=== PATIENT | female | born 1990 | race Caucasian/White ===

== ENCOUNTER 2017-04-16 07:43 | Emergency (ER) | payer OTHER ==
[~2017-04-16] VITALS: Wt 55.5 kg
[~2017-04-16 07:43] MED LIST: PREN1TAB49
--- NOTE | 2017-04-16 08:29 | ERD ---
ER Documentation Chief Complaint Chief Complaint cough, cwp from coughing, fever ROS All systems reviewed and are negative except as per history of present illness. Medications Home Meds Reported Medications Vits W-Ca,Fe,Fa(<1MG) () 1 Tab Tablet 02/04/12 [None] No Conflict Check 06/29/11 [None] No Conflict Check 09/08/10 Allergies Allergies: Coded Allergies: No Known Allergy (Verified , 02/04/12) PMhx/Soc History of Surgery: Yes (CHOLECYSTECTOMY) Anesthesia Reaction: No Hx Neurological Disorder: No Hx Respiratory Disorders: No Hx Cardiac Disorders: No Hx Psychiatric Problems: No Hx Miscellaneous Medical Probl: No Hx Alcohol Use: No Hx Substance Use: No Hx Tobacco Use: No Physical Exam Vitals Vital Signs Date Time Temp Pulse Resp B/P Pulse Ox O2 Delivery O2 Flow Rate FiO2 04/16/17 07:44 99.5 120 20 123/56 95 Physical Exam Patient is in no acute distress, vital signs stable. Alert and fully oriented. EYES: PERRLA, EOMI, Sclera and conjunctiva appear normal. EARS: Canals clear, tympanic membranes WNL THROAT: Normal oropharynx. NECK: Supple, No lymphadenopathy. Full ROM without pain or tenderness. HEART: RRR, no rubs, murmurs, clicks or gallops. LUNGS: Clear to auscultation. ABDOMEN: Soft, non-tender without masses or hepatosplenomegaly. EXTREMITIES: No edema bilaterally. MUSC: Full ROM, no deformity, normal back exam NAOMI WESTBROOK MD Apr 16, 2017 08:29
[2017-04-16 08:37] VITALS: TEMP 99
--- NOTE | 2017-04-16 08:55 | RADRPT ---
PROCEDURE: XR Chest. CLINICAL INDICATION: Cough. TECHNIQUE: Single frontal view. COMPARISON: None. FINDINGS: The lungs are clear. The heart size is normal. There is no pleural effusion. There is no pneumothorax. IMPRESSION: 1. Normal chest radiograph. RPTAT: QQ .Kurt Finch MD, Date Time Electronically viewed and signed by .Kurt Finch MD, on 04/16/2017 08:55 .R/
[2017-04-16] MEDS ORDERED: IBUPROFEN 600 MG TAB PO ONE (09:00)
[2017-04-16] MEDS ORDERED: SOD CHLORIDE 0.9% 1,000 ML IV ONE (09:00)
[2017-04-16] MEDS ORDERED: IBUP-1542 PO (09:50)
[2017-04-16] MEDS ORDERED: BENZ100C70 PO (09:50)
[2017-04-16] MEDS ORDERED: ALBU8.5H3 INH (09:50)
[2017-04-16 10:22] VITALS: BP 126/75; PULSE 94; RESP 19
--- NOTE | 2017-04-16 12:03 | ERD ---
ER Documentation Chief Complaint Chief Complaint cough, cwp from coughing, fever HPI 27-year-old female comes in with cough, sore throat, runny nose and anterior chest pain for the past 2-3 days. The patient has had a dry cough, and she reports chest pain in the center that goes to her back each time she takes a deep breath in or around or coughs. She has not had any shortness of breath. She does report fevers over the last 2 days. She has no leg pain, leg swelling , is not taking exogenous steroids, denies recent travel. ROS All systems reviewed and are negative except as per history of present illness. Medications Home Meds Active Scripts Albuterol Sulfate* (Proair HFA*) 8.5 Gm Hfa.aer.ad, 2 PUFF INH Q4, #1 INHALER Prov:JUAN JIMENEZ PA-C 04/16/17 Ibuprofen* (Motrin*) 600 Mg Tab, 600 MG PO Q6, #30 TAB Prov:JUAN JIMENEZ PA-C 04/16/17 Benzonatate* (Tessalon Perle*) 100 Mg Capsule, 100 MG PO Q8H Y for COUGH, #30 CAP Prov:JUAN JIMENEZ PA-C 04/16/17 Reported Medications Vits W-Ca,Fe,Fa(<1MG) () 1 Tab Tablet 02/04/12 [None] No Conflict Check 06/29/11 [None] No Conflict Check 09/08/10 Allergies Allergies: Coded Allergies: No Known Allergy (Verified , 02/04/12) PMhx/Soc History of Surgery: Yes (CHOLECYSTECTOMY) Anesthesia Reaction: No Hx Neurological Disorder: No Hx Respiratory Disorders: No Hx Cardiac Disorders: No Hx Psychiatric Problems: No Hx Miscellaneous Medical Probl: No Hx Alcohol Use: No Hx Substance Use: Yes Hx Tobacco Use: No Smoking Status: Never smoker Physical Exam Vitals Vital Signs Date Time Temp Pulse Resp B/P Pulse Ox O2 Delivery O2 Flow Rate FiO2 04/16/17 10:22 94 19 126/75 100 Room Air 04/16/17 09:43 89 04/16/17 08:37 99.0 122 97 04/16/17 07:44 99.5 120 20 123/56 95 Physical Exam General: Well-developed, well-nourished. The patient appears in no acute distress. HEENT: Head is normocephalic, atraumatic. No scleral icterus. Neck: Supple. Nontender. Lungs: Clear to auscultation. Normal air movement. No rales, rhonchi, nonlabored. Heart: Regular rate and rhythm. S1 and S2 are normal. No murmurs, gallops, or rubs. Abdomen: Nondistended. Extremities: No clubbing or cyanosis. Moving extremities x 4. No weakness. Neurologic: Alert and oriented 3. No focal deficits. Normal speech and gait. Skin: Normal turgor. No rash or lesions. Results 24 hrs Current Medications Medications (Trade) Dose Ordered Sig/Reji Route PRN Reason Start Time Stop Time Status Last Admin Dose Admin Ibuprofen 600 mg 600 mg ONCE ONCE PO 04/16/17 09:00 04/16/17 09:01 DC 04/16/17 09:07 Sodium Chloride (NS) 1,000 ml @ 1,000 mls/hr Q1H ONCE IV 04/16/17 09:00 04/16/17 09:59 DC 04/16/17 09:04 Procedures/MDM ED course: The patient was given ibuprofen, heart rate was rechecked and it was 120 and patient was then given a fluid bolus of normal saline 1 L. Recheck of her heart rate was 87. MDM: 27-year-old female comes in with a cough, history of fever and upper respiratory infection symptoms including sore throat, runny nose and she also reports generalized myalgias. The patient's history of chest pain also was considered, differentials include pneumonia, pulmonary embolus, dissection, acute coronary syndrome. She states that after receiving ibuprofen she does feel much better at this time. Chest x-ray was done negative for acute infiltrate. History is not concerning for dissection, or an acute coronary process. She also does not report any shortness of breath symptoms and is unlikely that she is presenting with pulmonary embolism. The patient's tachycardia is likely attributed to her pain as well as symptoms of fever and mild dehydration and she was given fluids and is feeling much better at this time. The patient's x-ray is normal and will be treated as an a viral upper respiratory infection, she is to return if she has any worsening or new symptoms. Departure Diagnosis: Primary Impression: Cough Condition: Good Patient Instructions: Uri, Viral, No Abx (Adult) JUAN JIMENEZ PA-C Apr 16, 2017 12:03
== END 2017-04-16 10:23 | disposition home or self-care (01) ==
LOC: FTE 07:43
DX: R05 Cough (principal)
CPT/HCPCS: 71010; J7030; Z7502; Z7610